=== PATIENT | male | born 1945 | race Caucasian/White ===

== ENCOUNTER → 2018-08-24 12:16 | Outpatient (CLI) | payer MEDICARE, OTHER ==
[2015-04-21 07:30] VITALS: BMI 25.1
== END | disposition home or self-care (01) ==
LOC: D.US 12:16
DX: I73.9 Peripheral vascular disease, unspecified (principal)

== ENCOUNTER → 2018-09-19 14:53 | Outpatient (CLI) | payer MEDICARE, OTHER ==
[2015-04-21 07:30] VITALS: BMI 25.1
== END | disposition home or self-care (01) ==
LOC: D.CT 14:53
DX: I73.9 Peripheral vascular disease, unspecified (principal)